=== PATIENT | male | born 1985 | race African-American/Black ===

== ENCOUNTER 2020-03-19 13:04 | Emergency (ER) | payer MEDICARE ==
[2020-03-19] MEDS ORDERED: predniSONE 50 MG TAB PO SCH (16:30)
== END 2020-03-19 16:58 | disposition home or self-care (01) ==
LOC: ERS 13:04
DX: G35 Multiple sclerosis (principal); F17.210 Nicotine dependence, cigarettes, uncomplicated
CPT/HCPCS: 99284; J7512